=== PATIENT | female | born 2000 | race Caucasian/White ===

== ENCOUNTER 2025-01-02 00:44 | Emergency (ER) | payer OTHER ==
[~2025-01-02] VITALS: Ht 170.2 cm; Wt 103.4 kg
[2025-01-02 01:00] VITALS: BP 123/73; TEMP 99
[2025-01-02] MEDS: IPRATROPIUM BROM 0.5 MG/2.5ML INH SOL NEB ONE (01:09)
[2025-01-02] MEDS: ALBUTEROL SULF 2.5 MG/0.5ML(0.5%) NEB SOLN NEB ONE (01:09)
--- NOTE | 2025-01-02 01:24 | ED.PDOC ---
History of Present Illness HPI Comments 24-year-old female presents with a chief complaint of SOB x this morning. Patient mentions that she has had a "lingering cough for 2 years after getting COVID-19". Patient says that she has white phlegm production as of today. Patient reports that this happened 1 year ago as well and received a breathing treatment and felt better. Patient has used her inhaler at home without relief, denies history of asthma. Patient mentions that she had attempted to get her cough resolved through her PCP but that they only prescribed her allergy medication which she states did not help. SpO2 is 94% on room air. Reports history of anxiety. Chief Complaint: Shortness of Breath Time Seen by MD: 01:23 Reviewed Notes: Medications, Allergies Allergies: Coded Allergies: NO KNOWN ALLERGIES (Unverified , 01/02/25) Home Meds Active Scripts Prednisone (Prednisone) 20 Mg Tab, 20 MG PO BID for 5 Days, #10 TAB Prov:ARDEN MCGRAW MD 01/02/25 Azithromycin (Azithromycin) 500 Mg Tab, 1 TAB PO DAILY for 7 Days, #7 TAB Prov:ARDEN MCGRAW MD 01/02/25 Albuterol Sulfate (Albuterol Sulfate Hfa) 108 Mcg/Act Aer, 108 MCG IN Q6HP PRN, #1 AER Prov:ARDEN MCGRAW MD 01/02/25 Information Source: Patient Mode of Arrival: Ambulatory Severity: Moderate Timing: Months Duration: Intermittent Prehospital treatment: None Past Medical History PAST MEDICAL HISTORY: Anxiety Surgical History: Denies all surgeries [employer] History: Denies all [employer] Hx Family History Family History: Reviewed,noncontributory to illness Social History Smoker: Non-Smoker Alcohol: Denies ETOH Use Drugs: Denies Drug Use Lives In: Home Constitutional: denies: chills, diaphoresis, fatigue, fever, malaise, sweats, weakness, others EENTM: denies: blurred vision, double vision, ear bleeding, ear discharge, ear drainage, ear pain, ear ringing, eye pain, eye redness, hearing loss, mouth pain, mouth swelling, nasal discharge, nose bleeding, nose congestion, nose pain, photophobia, tearing, throat pain, throat swelling, voice changes, others Respiratory: reports: cough, shortness of breath; denies: hemoptysis, orthopnea, SOB at rest, SOB with excertion, stridor, wheezing, others Cardiovascular: denies: chest pain, dizzy spells, diaphoresis, Dyspnea on exertion, edema, irregular heart beat, left arm pain, lightheadedness, palpitations, PND, syncope, others Gastrointestinal: denies: abdomen distended, abdominal pain, blood streaked bowels, constipated, diarrhea, dysphagia, difficulty swallowing, hematemesis, melena, nausea, poor appetite, poor fluid intake, rectal bleeding, rectal pain, vomiting, others Genitourinary: denies: abnormal vagina bleeding, burning, dyspareunia, dysuria, flank pain, frequency, hematuria, incontinence, pain, , vagina discharge, urgency, others Neurological: denies: dizziness, fainting, headache, left sided numbness, left sided weakness, numbness, paresthesia, pre-existing deficit, right sided numbness, right sided weakness, seizure, speech problems, tingling, tremors, weakness, others Musculoskeletal: denies: back pain, gout, joint pain, joint swelling, muscle pain, muscle stiffness, neck pain, others Integumetry: denies: bruises, change in color, change in hair/nails, dryness, laceration, lesions, lumps, rash, wounds, others Allergic/Immunocompromised: denies: Difficulty Healing, Frequent Infections, Hives, Itching, others Hematologic/Lymphatic: denies: anemia, blood clots, easy bleeding, easy bruising, swollen glands, others Endocrine: denies: excessive hunger, excessive sweating, excessive thirst, excessive urination, flushing, intolerance to cold, intolerance to heat, unexplained weight gain, unexplained weight loss, others Psychiatric: denies: anxiety, bipolar disorder, depression, hopeless, panic disorder, schizophrenia, sleepless, suicidal, others All Other Systems: Reviewed and Negative Physical Exam General Appearance: No Apparent Distress, Normal HEENT: Normal ENT Inspection, Pharynx Normal, TMs Normal Neck: Full Range of Motion, Non-Tender, Normal, Normal Inspection Respiratory: Chest Non-Tender, Lungs Clear, No Accessory Muscle Use, No Respiratory Distress, Normal Breath Sounds Cardiovascular: No Edema, No JVD, No Murmur, No Gallop, Normal Peripheral Pulses, Regular Rate/Rhythm Breast Exam: Deferred Gastrointestinal: No Organomegaly, Non Tender, No Pulsatile Mass, Normal Bowel Sounds, Soft Genitalia: Deferred Pelvic: Deferred Rectal: Deferred Extremities: No calf tenderness, Normal capillary refill, Normal inspection, Normal range of motion, Non-tender, No pedal edema Musculoskeletal : Apperance: Normal Neurologic: Alert, head gauge unit operator II-XII nml as Tested, No Motor Deficits, Normal Affect, Normal Mood, No Sensory Deficits Cerebellar Function: Normal Reflexes: Normal Skin: Dry, Normal Color, Warm Lymphatic: No Adenopathy Was a procedure done? Was a procedure done?: No Differential Dx Considerations may include: Differential diagnosis includes but is not limited to: asthma, pneumonia, congestive heart failure, pleural effusion, empyema, pulmonary embolus, and others X-Ray, Labs, Meds, VS Vital Signs Date Time Temp Pulse Resp B/P (MAP) Pulse Ox O2 Delivery O2 Flow Rate FiO2 01/02/25 01:06 20 97 Room Air* 0 21 01/02/25 01:00 99.0 103 22 123/73 (90) 94 99.0 Current Medications Medications (Trade) Dose Ordered Sig/Aubrey Route Start Time Stop Time Status Last Admin Albuterol (Ventolin Medneb) 2.5 mg ONCE ONCE NEB 01/02/25 01:00 01/02/25 01:01 DC 01/02/25 01:09 Ipratropium [place] (Atrovent Medneb) 0.5 mg ONCE ONCE NEB 01/02/25 01:00 01/02/25 01:01 DC 01/02/25 01:09 Time of 1ST Reevaluation: 01:53 Reevaluation 1ST: Unchanged Patient Education/Counseling: Diagnosis, Treatment, Prognosis Family Education/Counseling: No Family Present Departure 1 Departure Time of Disposition: 01:58 Impression: Primary Impression: Acute bronchospasm Disposition: 01 HOME / SELF CARE / HOMELESS Condition: Stable e-Prescriptions Prednisone (Prednisone) 20 Mg Tab 20 MG PO BID for 5 Days, #10 TAB Prov: ARDEN MCGRAW MD 01/02/25 Azithromycin (Azithromycin) 500 Mg Tab 1 TAB PO DAILY for 7 Days, #7 TAB Prov: ARDEN MCGRAW MD 01/02/25 Albuterol Sulfate (Albuterol Sulfate Hfa) 108 Mcg/Act Aer 108 MCG IN Q6HP PRN, #1 AER Prov: ARDEN MCGRAW MD 01/02/25 Discharged With: Self Critical Care Note Critical Care Time?: No Stability Stability form required: No Heart Score Heart Score: Heart Score Response (Comments) Value History N/A 0 EKG N/A 0 Age N/A 0 Risk Factors N/A 0 Troponin N/A 0 Total 0 I personally scribed for RADEN MCGRAW MD ([email or web address]) on 01/02/25 at 01:24. Electronically submitted by Alex Rolon ([email or web address]). I personally scribed for ARDEN MCGRAW MD ([email or web address]) on 01/02/25 at 01:53. Electronically submitted by Alex Rolon ([email or web address]). ARDEN MCGRAW MD Jan 02, 2025 01:24
[2025-01-02] MEDS ORDERED: PRED20TA2 PO (01:55)
[2025-01-02] MEDS ORDERED: AZIT500T66 PO (01:55)
[2025-01-02] MEDS ORDERED: ALBU108A5 IN (01:55)
[2025-01-02] MEDS ORDERED: predniSONE 20 MG TAB PO ONE (02:00)
[2025-01-02 02:06] VITALS: PULSE 99; RESP 18; O2SAT 96
== END 2025-01-02 02:09 | disposition home or self-care (01) ==
LOC: ER 00:44
DX: J98.01 Acute bronchospasm (principal); F41.9 Anxiety disorder, unspecified; Z79.899 Other long term (current) drug therapy; Z79.52 Long term (current) use of systemic steroids
CPT/HCPCS: 94640